=== PATIENT | female | born 1960 | race Two or more races ===

== ENCOUNTER 2017-09-03 16:18 | Emergency (ER) | payer BC, OTHER ==
[~2017-09-03] VITALS: Ht 170.2 cm; Wt 57.6 kg
--- NOTE | 2017-09-03 16:53 | NUR ---
PT SELF PRESENTS TO ER. AMBULATORY TO ER BED 09 C/O RT WRIST PAIN. + DEFORMITY NOTED. PT STATES FELL OFF A WALL. ADMITS TO BEEN DRINKING WINE. PT HAS NO OTHER COMPLAINTS AT THIS TIME. AWAITINGMD EVAL.
--- NOTE | 2017-09-03 16:55 | NUR ---
DR LEHMAN AT BEDSIDE FOR EVAL.
--- NOTE | 2017-09-03 17:00 | NUR ---
RADIOLOGY AT BEDSIDE FOR WRIST XRAY.
[2017-09-03] MEDS ORDERED: HYDROCODONE/APAP 5/325MG 1 EACH TABLET ONE (17:28)
[2017-09-03] MEDS ORDERED: HYDROCODONE/APAP 5/325MG 1 EACH TABLET PO ONE (17:30)
--- NOTE | 2017-09-03 18:28 | NUR ---
Patient discharged to home in stable condition. Written and verbal after care instructions given. Patient verbalizes understanding of instruction.
[2017-09-03 18:29] VITALS: BP 130/65
== END 2017-09-03 18:30 | disposition home or self-care (01) ==
LOC: ER 16:20
DX: S52.501A Unspecified fracture of the lower end of right radius, initial encounter for closed fracture (principal); S52.601A Unspecified fracture of lower end of right ulna, initial encounter for closed fracture; S62.001A Unspecified fracture of navicular [scaphoid] bone of right wrist, initial encounter for closed fracture; E11.9 Type 2 diabetes mellitus without complications; I10 Essential (primary) hypertension; F17.200 Nicotine dependence, unspecified, uncomplicated; Z88.0 Allergy status to penicillin; W13.8XXA Fall from, out of or through other building or structure, initial encounter; Y93.K1 Activity, walking an animal; Y92.89 Other specified places as the place of occurrence of the external cause; Y99.9 Unspecified external cause status
CPT/HCPCS: 29125; 73100; 99284; 99406; A4606; Z7610

== ENCOUNTER 2017-09-05 20:49 | Emergency (ER) | payer BC, OTHER ==
[~2017-09-05] VITALS: Ht 170.2 cm; Wt 57.6 kg
--- NOTE | 2017-09-05 21:02 | NUR ---
57 YO FELMALE PT TO BED 4. BIB SELF. AMBUL WITH STEADY GAIT, VSS, NAD NOTED.PT C/O RIGHT HAND SWELLING S/P SUGAR TONG SPLINT ON THURSDAY, AT BEDSIDE.
--- NOTE | 2017-09-05 21:10 | NUR ---
TECH AT BEDSIDE PER MD, TO REMOVE RING ON THE RIGHT RING FINGER PER MD ORDERS.
--- NOTE | 2017-09-05 21:22 | NUR ---
SPLINT TO RIGHT FA REMOVED, AT BEDSIDE. RIGHT DISTAL CMS INTACT.
--- NOTE | 2017-09-05 22:03 | NUR ---
NEW SPLINT APPLIED TO RIGHT ARM, CMS INTACT. Patient discharged to home in stable condition. Written and verbal after care instructions given. Patient verbalizes understanding of instruction. Pt ambulatory with a steady gait.
[2017-09-05 22:05] VITALS: BP 128/84
== END 2017-09-05 21:26 | disposition home or self-care (01) ==
LOC: ER 20:50
DX: S62.101A Fracture of unspecified carpal bone, right wrist, initial encounter for closed fracture (principal); I10 Essential (primary) hypertension; E11.9 Type 2 diabetes mellitus without complications; F10.10 Alcohol abuse, uncomplicated; F17.200 Nicotine dependence, unspecified, uncomplicated; Z88.0 Allergy status to penicillin; X58.XXXA Exposure to other specified factors, initial encounter; Y93.89 Activity, other specified; Y92.89 Other specified places as the place of occurrence of the external cause; Y99.8 Other external cause status
CPT/HCPCS: 29105; 99283; A4606; Z7610

== ENCOUNTER 2019-01-28 09:19 | Emergency (ER) | payer BC, OTHER ==
[~2019-01-28] VITALS: Ht 170.2 cm; Wt 57.6 kg
--- NOTE | 2019-01-28 09:32 | NUR ---
pt walked [facility] emergency room for c/c of right shoilder pain after ground level fall last night. pt alert with orientation x 4
[2019-01-28] MEDS ORDERED: ACETAMINOPHEN 325 MG TABLET ONE (10:12)
[2019-01-28 10:16] VITALS: BP 173/104
[2019-01-28] MEDS ORDERED: ACETAMINOPHEN 325 MG TABLET PO ONE (10:30)
== END 2019-01-28 10:17 | disposition home or self-care (01) ==
LOC: ER 09:21
DX: S42.252A Displaced fracture of greater tuberosity of left humerus, initial encounter for closed fracture (principal); W22.8XXA Striking against or struck by other objects, initial encounter; F17.200 Nicotine dependence, unspecified, uncomplicated; I10 Essential (primary) hypertension; E11.9 Type 2 diabetes mellitus without complications; Z88.0 Allergy status to penicillin; Y93.89 Activity, other specified; Y92.89 Other specified places as the place of occurrence of the external cause; Y99.8 Other external cause status
CPT/HCPCS: 73030; 99283; A4606